=== PATIENT | male | born 1975 | race Caucasian/White ===

== ENCOUNTER 2018-03-09 09:29 | Emergency (ER) | payer OTHER ==
[~2018-03-09] VITALS: Ht 154.9 cm; Wt 68.0 kg
[~2018-03-09 09:29] MED LIST: APAP500 PO; ATIVAN1 MG PO; CARAFATE 1 GM TA1 G1 PO; FLEXERIL PO; HYDROCODON-ACE1 EACH PO; IBUPROFEN 800800 MG PO; MEDROLDOSEPACK PO; NAPROSYN250 MG PO; NOHOMEMEDICATIONS; NORCO 5-325 TA1 EACH PO; PEPCID20 MG PO; PRILOSEC 20 MG20 MG PO; PRILOSEC10 MG PO
[2018-03-09 12:42] LABS: ABSOLUTE EOSINOPHILS 0.1 thou/uL (0.0-0.7); ABSOLUTE LYMPHOCYTES 2.4 thou/uL (0.8-5.3); ABSOLUTE MONOCYTES 0.7 thou/uL (0.0-1.2); ABSOLUTE NEUTROPHILS 4.3 thou/uL (1.6-8.1); BASOPHILS 0.3 %; EOSINOPHILS 1.4 %; HEMATOCRIT 43.5 % (42.0-52.0); HEMOGLOBIN 15.2 gm/dL (14.0-18.0); LYMPHOCYTES 31.7 %; MCH 32.5 pg (26.0-34.0); MCHC 34.9 g/dL (28.0-37.0); MONOCYTES 9.2 %; MPV 9.8 fl. (7.2-11.1); NUCLEATED RBCS 0 /100WBC; PLATELET COUNT* 136 thou/uL (150-400); POLYS 57.4 %; RBC 4.68 mil/uL (4.50-6.00); WBC 7.5 thou/uL (4.0-11.0)
[2018-03-09 12:46] LABS: CALCIUM 9.1 mg/dL (8.5-10.1); CREATININE 0.9 mg/dL (0.6-1.3); POTASSIUM 4.3 mmol/L (3.5-5.1)
[2018-03-09 12:51] LABS: ALBUMIN 3.5 g/dL (3.4-5.0); TOTAL BILIRUBIN 0.8 mg/dL (<0.1-1.0)
[2018-03-09] MEDS ORDERED: LIORESAL 10 MG10 MG PO (16:30)
[2018-03-09] MEDS ORDERED: REGLAN 10 MG TA10 MG PO (16:30)
[2018-03-09] MEDS ORDERED: NEURONTIN 300300 M1 PO (16:30)
[2018-03-09 16:41] VITALS: BP 120/81
== END 2018-03-09 16:42 | disposition home or self-care (01) ==
LOC: M.ERS 09:29
PROVIDERS: Personal Emergency Response Attendant
DX: R06.6 Hiccough (principal); M19.90 Unspecified osteoarthritis, unspecified site